=== PATIENT | female | born 1930 | race Caucasian/White ===

== ENCOUNTER → 2017-09-09 | Outpatient (CLI) | payer OTHER ==
[2016-06-07 21:04] VITALS: BP 151/75
--- NOTE | 2017-09-09 15:07 | RAD ---
HISTORY: Chronic knee pain with no known trauma Study: Two views of the left knee Comparison: None Findings: Images demonstrate postoperative changes of left knee replacement. No evidence of acute displaced fra cture, dislocation, or hardware failure is identified. IMPRESSION: 1. Postoperative changes of left knee replacement. Reported By:
--- NOTE | 2017-09-09 15:08 | RAD ---
HISTORY: Knee pain Study: Three views of right knee Comparison: None Findings: Images demonstrate medial and patellofemoral compartment space narrowing. Subchondral sclerosis and c yst formation are seen within the tibial plateau. Minimal spurring of the tibial spines is noted. Ent hesophyte formation is seen along the medial and lateral femoral condyles and the medial and lateral tibial plateau. Spurring is also seen along the posterior margin of the patella. Vascular calcificati ons are seen within the overlying soft tissues. IMPRESSION: 1. Degenerative changes as noted above. Reported By:
== END ==
LOC: RAD 09:21
PROVIDERS: ATTEND Internal Medicine
DX: M25.561 Pain in right knee (principal); M25.562 Pain in left knee
CPT/HCPCS: 73564

== ENCOUNTER 2017-12-19 11:53 | Observation (INO) ==
[~2017-12-19 11:53] MED LIST: NS IRRIGATION 3000 ML ONE
[2017-12-19 13:25] LABS: BASOPHILS % (AUTO) 0.6 % (0.2-1.0); EOSINOPHILS # (AUTO) 0.1 x10^3/uL (0.0-0.2); EOSINOPHILS % (AUTO) 1.2 % (0.9-2.9); HEMATOCRIT 39.6 % (36.0-47.0); HEMOGLOBIN 13.3 g/dL (12.0-16.0); LYMPHOCYTES # (AUTO) 2.2 X10^3/uL (1.3-2.9); LYMPHOCYTES % (AUTO) 32.2 % (21.0-51.0); MEAN CORPUSCULAR HEMOGLOBIN 29.8 pg (27.0-34.0); MEAN CORPUSCULAR HGB CONC 33.7 g/dL (33.0-35.0); MEAN CORPUSCULAR VOLUME 88.5 fL (80.0-100.0); MONOCYTES # (AUTO) 0.9 x10^3/uL (0.3-0.8); MONOCYTES % (AUTO) 12.3 % (0.0-13.0); NEUTROPHILS # (AUTO) 3.7 x10^3/uL (2.2-4.8); NEUTROPHILS % (AUTO) 53.7 % (42.0-75.0); PLATELET COUNT 249 X10^3/uL (150.0-450.0); RED BLOOD COUNT 4.48 X10^6/uL (3.5-5.4); RED CELL DISTRIBUTION WIDTH 13.2 % (11.6-16.5); WHITE BLOOD COUNT 6.9 X10^3/uL (3.6-10.0)
[2017-12-19 13:29] LABS: ALANINE AMINOTRANSFERASE 49 Units/L (12-78); ALBUMIN 3.6 g/dL (3.4-5.0); ALKALINE PHOSPHATASE 38 Units/L (46-116); ASPARTATE AMINO TRANSFERASE 50 Units/L (15-37); BLOOD UREA NITROGEN 35 mg/dL (7-18); CALCIUM 9.3 mg/dL (8.5-10.1); CARBON DIOXIDE 27.1 mmol/L (21-32); CHLORIDE 104 mmol/L (98-107); COR NA(FOR HYPERGLY) 140 mmol/L (136-145); CREATININE 1.77 mg/dL (0.55-1.02); SODIUM 139 mmol/L (136-145); TOTAL PROTEIN 7.2 g/dL (6.4-8.2); eGFR NON BLACK RACES 29 (>60)
[2017-12-19] MEDS: NS 1000 ML 1,000 ML IV SCH (13:30)
--- NOTE | 2017-12-19 14:35 | RAD ---
HISTORY: Preoperative evaluation for gallbladder surgery Study: Single view chest Comparison: 05/06/2012 Findings: Single portable view is submitted. Lung volumes are reduced. No infiltrate, effusion or pneumothorax identified. The cardiac and mediastinal contours are within normal limits. There are degenerative ch anges of the bony thorax. IMPRESSION: 1. No acute cardiopulmonary abnormality. Reported By:
[2017-12-19 14:55] VITALS: BMI 41.8
[2017-12-19 17:35] LABS: BILIRUBIN,URINE NEGATIVE (NEGATIVE); BLOOD/HEMOGLOBIN,URINE 1+ (NEGATIVE); GLUCOSE, URINE NEGATIVE (NEGATIVE); KETONES,URINE NEGATIVE (NEGATIVE); LEUKOCYTE ESTERASE ,URINE 2+ (NEGATIVE); NITRITES,URINE NEGATIVE (NEGATIVE); PROTEIN,URINE NEGATIVE (NEGATIVE); UROBILINOGEN,URINE NORMAL (NORMAL)
[2017-12-19 17:40] LABS: APPEARANCE,URINE SLIGHTLY HAZY (CLEAR); BACTERIA,URINE 1+ /HPF (NEGATIVE); COLOR,URINE YELLOW (YELLOW); SQUAMOUS EPITHELIAL CELL,UR RARE /HPF (NEGATIVE)
[2017-12-19] MEDS: ROCEPHIN VIAL 1 GRAM 1 G in NS 100 ML IV + SPIKE MINIBAG* 100 ML IV SCH (21:38)
[2017-12-19] MEDS: ZOCOR TAB 40 MG PO SCH (21:41)
[2017-12-19] MEDS: DESYREL PO SCH (21:41)
[2017-12-19] MEDS: LOPRESSOR TAB 25 MG PO SCH (21:41)
[2017-12-20] MEDS: NS 1000 ML 1,000 ML IV SCH ×4 (02:00→20:28)
[2017-12-20 05:20] LABS: BASOPHILS % (AUTO) 0.5 % (0.2-1.0); EOSINOPHILS # (AUTO) 0.1 x10^3/uL (0.0-0.2); EOSINOPHILS % (AUTO) 1.5 % (0.9-2.9); HEMATOCRIT 39.9 % (36.0-47.0); HEMOGLOBIN 13.4 g/dL (12.0-16.0); LYMPHOCYTES # (AUTO) 2.1 X10^3/uL (1.3-2.9); LYMPHOCYTES % (AUTO) 25.2 % (21.0-51.0); MEAN CORPUSCULAR HEMOGLOBIN 29.9 pg (27.0-34.0); MEAN CORPUSCULAR HGB CONC 33.6 g/dL (33.0-35.0); MEAN CORPUSCULAR VOLUME 88.8 fL (80.0-100.0); MEAN PLATELET VOLUME 9.4 fL (7.4-11.0); MONOCYTES # (AUTO) 0.9 x10^3/uL (0.3-0.8); MONOCYTES % (AUTO) 10.9 % (0.0-13.0); NEUTROPHILS # (AUTO) 5.2 x10^3/uL (2.2-4.8); NEUTROPHILS % (AUTO) 61.9 % (42.0-75.0); PLATELET COUNT 221 X10^3/uL (150.0-450.0); RED CELL DISTRIBUTION WIDTH 13.3 % (11.6-16.5); WHITE BLOOD COUNT 8.4 X10^3/uL (3.6-10.0)
[2017-12-20 05:25] LABS: ALANINE AMINOTRANSFERASE 44 Units/L (12-78); ALBUMIN 3.4 g/dL (3.4-5.0); ALKALINE PHOSPHATASE 35 Units/L (46-116); ASPARTATE AMINO TRANSFERASE 43 Units/L (15-37); BLOOD UREA NITROGEN 30 mg/dL (7-18); CALCIUM 9.1 mg/dL (8.5-10.1); CARBON DIOXIDE 28.5 mmol/L (21-32); CHLORIDE 105 mmol/L (98-107); COR NA(FOR HYPERGLY) 141 mmol/L (136-145); CREATININE 1.65 mg/dL (0.55-1.02); SODIUM 141 mmol/L (136-145); eGFR NON BLACK RACES 31 (>60)
[2017-12-20] MEDS: ZESTORETIC 10/ 12.5MG PO SCH (08:30)
[2017-12-20] MEDS: LOPRESSOR TAB 25 MG PO SCH ×2 (08:30→20:28)
[2017-12-20] MEDS: SYNTHROID 125 mcg TAB PO SCH (08:32)
[2017-12-20] MEDS ORDERED: LEVOTHYROXINE 125 MCG PO SCH (09:00)
[2017-12-20] MEDS: SINGULAIR TAB 10 MG PO SCH (10:22)
[2017-12-20] MEDS: PATIENT'S HOME MEDICATION (Fenofibrate [Fenofibrate] 54 MG) PO SCH (10:22)
[2017-12-20] MEDS: PriLOSEC PO SCH (10:22)
[2017-12-20] MEDS: ZyrTEC TAB 10 MG PO SCH (10:23)
[2017-12-20] MEDS: ROCEPHIN VIAL 1 GRAM 1 G in NS 100 ML IV + SPIKE MINIBAG* 100 ML IV SCH (10:35)
[2017-12-20] MEDS ORDERED: ZOFRAN INJ 4 MG VIAL IVP PRN (11:35)
--- NOTE | 2017-12-20 11:36 | PCM.PROG ---
Progress Note - Progress Note for Day of Date of Exam: 12/20/17 - Subjective Subjective: WAS ADMITTED FOR COMPLAINTS OF ABDOMINAL PAIN, NAUSEA/ VOMITING, AND DEHYDRATION. SHE HAD AN OUTPATIENT HIDA SCAN ON 11/16/17 WHICH REVEALED A LOW GALLBLADDEREJECTION FRACTION, SUGGESTING CHRONIC CHOLECYSTITIS OR BILIARY DYSKINESIA. SHE ALSO REPORTS BURINING ON URINATION. SHE STATES THAT NAUSEA IS WORSE AFTER EATING ANYTHING. TODAY, SHE IS ALERT AND ORIENTED, SITTING IN THE CHAIR ON MORNING ROUNDS. SHE CONTINUES WITH COMPLAINTS OF DIFFUSE ABDOMINAL PAIN AND NAUSEA. ON EXAMINATION, HEART IS REGULAR IN RATE AND RHYTHM. BILATERAL LUNGS ARE NOTED WITH DIMINISHED LUNG SOUNDS THROUGHOUT. ABDOMEN IS ROUND, SOFT, AND NOTED WITH MODERATE, DIFFUSE TENDERNESS. NORMAL BOWEL SOUNDS ARE NOTED IN ALL QUADRANTS. HER VITALS THIS MORNING ARE 98.1-62-20- 94%-182/94. LABS WERE OBTAINED. ABNORMAL LAB VALUES INCLUDE THE FOLLOWING: BUN 30, CREATININE 1.65, GLUCOSE 115, AST 43, ALK PHOS 35. ON ADMISSION, A URINALYSIS REVEALED WBC 3-5, RBC 3-5, LEUKOCYTES 2+, BACTERIA 1+. SHE WAS STARTED ON ROCEPHIN 1GM IV DAILY AND NORMAL SALINE AT 80ML/HR. HOME MEDICATIONS WERE RESUMED. CONSULTED WITH PATIENT AND ORDERED AN ABDOMEN/PELVIS CT WITH CONTRAST FOR THIS MORNING. OTHERWISE, WE WILL CONTINUE WITH CURRENT PLAN OF CARE AND CONTINUE TO MONITOR PATIENT. - Past Medical Family Social History Past Med/Fam/Surg Hx: No changes since H&P Allergies: Allergies latex Allergy (Verified 12/19/17 13:40) - Review of Systems ROS: No change since H&P - Vital Signs and I&O's Vital Signs: Temperature 98.1 F Pulse Rate [Right Brachial] 62 Respiratory Rate 20 Blood Pressure [Left Arm] 182/94 Blood Pressure [Right Arm] 148/74 Blood Pressure 151/75 O2 Sat by Pulse Oximetry 94 Intake and Output: Intake & Output 12/17/17 12/18/17 12/19/17 12/20/17 11:59 11:59 11:59 11:59 Intake Total 880 / 880 Output Total 1200 / 1200 Balance -320 / -320 - Physical Exam Oriented: Normal Eyes: Normal Ear: Normal Nose: Normal Throat: Normal Respiratory: Normal, Diminished Cardiovascular: Normal : Normal Auscultation: Bowel Sounds: Normal Palpation: Normal Tenderness: Diffuse, Moderate. negative: Rebound, Guarding, Rigidity Skin: Normal Musculoskeletal: Normal Psychiatric: Normal Mood Description: Calm Affect: Normal Speech Pattern: Clear, Appropriate - Laboratory and Diagnostics Result Diagrams: 12/20/17 04:20 12/20/17 04:20 Labs: 12/19/17 17:18 Urine,Clean Catch Urine Culture - Preliminary Laboratory WBC 8.4 X10^3/uL (3.6-10.0) 12/20/17 04:20 RBC 4.50 X10^6/uL (3.5-5.4) 12/20/17 04:20 Hgb 13.4 g/dL (12.0-16.0) 12/20/17 04:20 Hct 39.9 % (36.0-47.0) 12/20/17 04:20 MCV 88.8 fL (80.0-100.0) 12/20/17 04:20 MCH 29.9 pg (27.0-34.0) 12/20/17 04:20 MCHC 33.6 g/dL (33.0-35.0) 12/20/17 04:20 RDW 13.3 % (11.6-16.5) 12/20/17 04:20 Plt Count 221 X10^3/uL (150.0-450.0) 12/20/17 04:20 MPV 9.4 fL (7.4-11.0) 12/20/17 04:20 Neut % (Auto) 61.9 % (42.0-75.0) 12/20/17 04:20 Lymph % (Auto) 25.2 % (21.0-51.0) 12/20/17 04:20 [place] % (Auto) 10.9 % (0.0-13.0) 12/20/17 04:20 Eos % (Auto) 1.5 % (0.9-2.9) 12/20/17 04:20 Baso % (Auto) 0.5 % (0.2-1.0) 12/20/17 04:20 Neut # (Auto) 5.2 x10^3/uL (2.2-4.8) H 12/20/17 04:20 Lymph # (Auto) 2.1 X10^3/uL (1.3-2.9) 12/20/17 04:20 [place] # (Auto) 0.9 x10^3/uL (0.3-0.8) H 12/20/17 04:20 Eos # (Auto) 0.1 x10^3/uL (0.0-0.2) 12/20/17 04:20 Baso # (Auto) 0.0 X10^3/uL (0.0-0.1) 12/20/17 04:20 Absolute Nucleated RBC 0.0 /100WBC 12/20/17 04:20 Sodium 141 mmol/L (136-145) 12/20/17 04:20 Corrected Sodium 141 mmol/L (136-145) 12/20/17 04:20 Potassium 4.2 mmol/L (3.5-5.1) 12/20/17 04:20 Chloride 105 mmol/L (98-107) 12/20/17 04:20 Carbon Dioxide 28.5 mmol/L (21-32) 12/20/17 04:20 BUN 30 mg/dL (7-18) H 12/20/17 04:20 Creatinine 1.65 mg/dL (0.55-1.02) H 12/20/17 04:20 Est GFR (MDRD) Af Amer 38 (>60) L 12/20/17 04:20 Est GFR (MDRD) Non-Af 31 (>60) L 12/20/17 04:20 Glucose 115 mg/dL (65-99) H 12/20/17 04:20 Calcium 9.1 mg/dL (8.5-10.1) 12/20/17 04:20 Corrected Calcium TNP 12/20/17 04:20 Total Bilirubin 0.30 mg/dL (0.2-1.0) 12/20/17 04:20 AST 43 Units/L (15-37) H 12/20/17 04:20 ALT 44 Units/L (12-78) 12/20/17 04:20 Alkaline Phosphatase 35 Units/L (46-116) L 12/20/17 04:20 Total Protein 7.0 g/dL (6.4-8.2) 12/20/17 04:20 Albumin 3.4 g/dL (3.4-5.0) 12/20/17 04:20 Globulin 3.6 g/dL (2.5-4.5) 12/20/17 04:20 Albumin/Globulin Ratio 0.9 Ratio (1.1-2.1) L 12/20/17 04:20 Specimen Type Clean catch urine 12/19/17 17:18 Urine Color Yellow (YELLOW) 12/19/17 17:18 Urine Appearance Slightly hazy (CLEAR) 12/19/17 17:18 Urine pH 7.0 (5.0 - 8.0) 12/19/17 17:18 Ur Specific [place] 1.010 (1.000-1.030) 12/19/17 17:18 Urine Protein Negative (NEGATIVE) 12/19/17 17:18 Urine Glucose (UA) Negative (NEGATIVE) 12/19/17 17:18 Urine Ketones Negative (NEGATIVE) 12/19/17 17:18 Urine Occult Blood 1+ (NEGATIVE) 12/19/17 17:18 Urine Nitrite Negative (NEGATIVE) 12/19/17 17:18 Urine Bilirubin Negative (NEGATIVE) 12/19/17 17:18 Urine Urobilinogen Normal (NORMAL) 12/19/17 17:18 Ur Leukocyte Esterase 2+ (NEGATIVE) 12/19/17 17:18 Urine RBC 3-5 /HPF (NONE SEEN) 12/19/17 17:18 Urine WBC 3-5 /HPF (NONE SEEN) 12/19/17 17:18 Ur Squamous Epith Cells Rare /HPF (NEGATIVE) 12/19/17 17:18 Urine Bacteria 1+ /HPF (NEGATIVE) 12/19/17 17:18 Ur Culture Indicated? Yes/culture set up 12/19/17 17:18 - Plan (1) Abdominal pain Status: Acute Qualifiers: Abdominal location: generalized Qualified Code(s): R10.84 - Generalized abdominal pain Plan: ABDOMEN/PELVIS CT TODAY, CONTINUE TO MONITOR (2) Nausea & vomiting Status: Acute Qualifiers: Vomiting type: unspecified Vomiting Intractability: non-intractable Qualified Code(s): R11.2 - Nausea with vomiting, unspecified Plan: ZOFRAN 4MG IV Q6H PRN NAUSEA, CONTINUE TO MONITOR (3) Urinary tract infection Status: Acute Qualifiers: Urinary tract infection type: acute cystitis Hematuria presence: without hematuria Qualified Code(s): N30.00 - Acute cystitis without hematuria Plan: ROCEPHIN 1GM IV DAILY, CONTINUE TO MONITOR
--- NOTE | 2017-12-20 12:16 | CT ---
HISTORY: Right upper quadrant pain, nausea, gallstones, low gallbladder ejection fraction. Study: CT abdomen and pelvis without IV and with oral contrast Comparison: 02/06/2016 Technique: Multiple axial images of the abdomen and pelvis were obtained from the lung bases to the pubic symphy sis without the administration of IV contrast. Oral contrast agents were given. Coronal and sagittal images are also reviewed. Dose reduction techniques utilized automatic exposure control. Findings: The visualized portions of the lung bases are unremarkable. Multiple simple cysts are present involvi ng right and left hepatic lobes and both kidneys, essentially unchanged from prior studies. Findings have the appearance of polycystic kidney and liver disease. The spleen, pancreas, and adrenal glands are unremarkable in their CT appearance. The gallbladder is unremarkable in its CT appearance. No s ignificant mesenteric lymphadenopathy or stranding can be observed. No free fluid or free air is see n within the abdomen. No bowel wall thickening or bowel dilatation is present. There is generalized diverticulosis of the colon, severe in the sigmoid. No evidence of diverticulitis or obstruction is seen.. The urinary bladder is grossly unremarkable. There are bilateral hip arthroplasties. Artifact s off of the structures rendering good definition of pelvic structures difficult. The uterus and ovar ies regions are not well seen. Severe multilevel degenerative disc disease is present with marginal s pondylosis in the lumbar spine. IMPRESSION: Polycystic kidney and liver disease. No solid masses are seen. Normal appearing gallbladder by CT criteria. Generalized diverticulosis of the colon, severe in the sigmoid. No evidence of diverticulitis or obst ruction is seen. Reported By:
[2017-12-20] MEDS ORDERED: TYLENOL 325 MG TAB PO PRN (13:25)
[2017-12-20] MEDS: DESYREL PO SCH (20:28)
[2017-12-20] MEDS: ZOCOR TAB 40 MG PO SCH (20:28)
[2017-12-21 05:26] LABS: BASOPHILS % (AUTO) 0.8 % (0.2-1.0); EOSINOPHILS # (AUTO) 0.2 x10^3/uL (0.0-0.2); EOSINOPHILS % (AUTO) 3.2 % (0.9-2.9); HEMATOCRIT 37.9 % (36.0-47.0); HEMOGLOBIN 12.4 g/dL (12.0-16.0); LYMPHOCYTES # (AUTO) 1.9 X10^3/uL (1.3-2.9); LYMPHOCYTES % (AUTO) 33.3 % (21.0-51.0); MEAN CORPUSCULAR HEMOGLOBIN 28.9 pg (27.0-34.0); MEAN CORPUSCULAR HGB CONC 32.8 g/dL (33.0-35.0); MEAN PLATELET VOLUME 9.1 fL (7.4-11.0); MONOCYTES # (AUTO) 0.7 x10^3/uL (0.3-0.8); MONOCYTES % (AUTO) 11.6 % (0.0-13.0); NEUTROPHILS % (AUTO) 51.1 % (42.0-75.0); PLATELET COUNT 238 X10^3/uL (150.0-450.0); RED CELL DISTRIBUTION WIDTH 13.3 % (11.6-16.5); WHITE BLOOD COUNT 5.8 X10^3/uL (3.6-10.0)
[2017-12-21] MEDS: NS 1000 ML 1,000 ML IV SCH (05:34)
[2017-12-21 05:37] LABS: ALANINE AMINOTRANSFERASE 35 Units/L (12-78); ALBUMIN 3.3 g/dL (3.4-5.0); ALKALINE PHOSPHATASE 37 Units/L (46-116); ASPARTATE AMINO TRANSFERASE 34 Units/L (15-37); BLOOD UREA NITROGEN 22 mg/dL (7-18); CALCIUM 8.9 mg/dL (8.5-10.1); CARBON DIOXIDE 26.9 mmol/L (21-32); CHLORIDE 107 mmol/L (98-107); COR CA(FOR HYPOALB) 9.5 mg/dL (8.5-10.1); CREATININE 1.37 mg/dL (0.55-1.02); SODIUM 142 mmol/L (136-145); TOTAL PROTEIN 6.7 g/dL (6.4-8.2); eGFR NON BLACK RACES 39 (>60)
[2017-12-21] MEDS: LOPRESSOR TAB 25 MG PO SCH ×2 (08:04→20:55)
[2017-12-21] MEDS: ROCEPHIN VIAL 1 GRAM 1 G in NS 100 ML IV + SPIKE MINIBAG* 100 ML IV SCH (08:04)
[2017-12-21] MEDS ORDERED: FENTANYL INJ 250 mcg ONE (12:07)
[2017-12-21] MEDS ORDERED: AMIDATE INJ 40 MG VIAL ONE (12:07)
[2017-12-21] MEDS ORDERED: LR 1000 ML IV 1,000 ML IV ONE (12:09)
[2017-12-21] MEDS ORDERED: ANCEF 1 GRAM IV PREMIX* 1 G/50 ML BAG IV ONE (12:10)
[2017-12-21] MEDS ORDERED: BENADRYL INJ 50 MG VIAL IVP PRN (13:51)
[2017-12-21] MEDS ORDERED: ZOFRAN INJ 4 MG VIAL IVP PRN (13:51)
[2017-12-21] MEDS ORDERED: DILAUDID INJ IVP PRN ×2 (13:51→14:25)
[2017-12-21] MEDS ORDERED: REGLAN INJ 10 MG VIAL IVP PRN (13:51)
[2017-12-21] MEDS ORDERED: PHENERGAN INJ 25 MG IVP PRN (13:51)
[2017-12-21] MEDS ORDERED: DILAUDID INJ ONE (13:58)
[2017-12-21] MEDS: PATIENT'S HOME MEDICATION (Fenofibrate [Fenofibrate] 54 MG) PO SCH (14:38)
[2017-12-21] MEDS: SYNTHROID 125 mcg TAB PO SCH (14:38)
[2017-12-21] MEDS: SINGULAIR TAB 10 MG PO SCH (14:38)
[2017-12-21] MEDS: PriLOSEC PO SCH (14:38)
[2017-12-21] MEDS: ZyrTEC TAB 10 MG PO SCH (14:40)
[2017-12-21] MEDS ORDERED: LTA KIT LIDOCAINE 4% ONE (15:21)
[2017-12-21] MEDS ORDERED: SUPRANE IN ONE (15:21)
[2017-12-21] MEDS ORDERED: ROBINUL ONE (15:21)
[2017-12-21] MEDS ORDERED: QUELICIN (OR ANECTINE) ONE (15:21)
[2017-12-21] MEDS ORDERED: VERSED ONE (15:21)
[2017-12-21] MEDS ORDERED: NORMODYNE INJ 100 MG VIAL ONE (15:21)
[2017-12-21] MEDS ORDERED: APRESOLINE INJ 20 MG VIAL ONE (15:21)
[2017-12-21] MEDS ORDERED: NEOSTIGMINE INJ ONE (15:21)
[2017-12-21] MEDS ORDERED: XYLOCAINE 1 % (PLAIN) ONE (15:21)
[2017-12-21] MEDS ORDERED: ZOFRAN INJ 4 MG VIAL ONE (15:21)
[2017-12-21] MEDS ORDERED: NORCURON INJ 10 MG VIAL ONE (15:21)
[2017-12-21] MEDS: D5 1/2 NS 1000 ML 1,000 ML IV SCH (15:46)
[2017-12-21] MEDS: ZESTORETIC 10/ 12.5MG PO SCH (16:53)
--- NOTE | 2017-12-21 18:09 | OR.GENERIC ---
Post-Op Note Generic - Post-Op Note Operative Report: Lap deven and liver Bx was done . findings : large distended GB and small liver nodule Rt lobe of liver . did well with minimal blood loss . start low fat diet in am and will follow in 10 days .
[2017-12-21] MEDS: DESYREL PO SCH (20:55)
[2017-12-21] MEDS: ZOCOR TAB 40 MG PO SCH (20:55)
[2017-12-21] MEDS: NYSTATIN POWDER TOP SCH (20:55)
[2017-12-22] MEDS: D5 1/2 NS 1000 ML 1,000 ML IV SCH (04:46)
[2017-12-22 05:25] LABS: BASOPHILS % (AUTO) 0.5 % (0.2-1.0); EOSINOPHILS % (AUTO) 0.6 % (0.9-2.9); HEMATOCRIT 35.2 % (36.0-47.0); HEMOGLOBIN 11.8 g/dL (12.0-16.0); LYMPHOCYTES # (AUTO) 1.3 X10^3/uL (1.3-2.9); LYMPHOCYTES % (AUTO) 17.2 % (21.0-51.0); MEAN CORPUSCULAR HEMOGLOBIN 29.6 pg (27.0-34.0); MEAN CORPUSCULAR HGB CONC 33.5 g/dL (33.0-35.0); MEAN CORPUSCULAR VOLUME 88.3 fL (80.0-100.0); MEAN PLATELET VOLUME 9.4 fL (7.4-11.0); MONOCYTES # (AUTO) 0.6 x10^3/uL (0.3-0.8); MONOCYTES % (AUTO) 8.1 % (0.0-13.0); NEUTROPHILS # (AUTO) 5.5 x10^3/uL (2.2-4.8); NEUTROPHILS % (AUTO) 73.6 % (42.0-75.0); PLATELET COUNT 202 X10^3/uL (150.0-450.0); RED BLOOD COUNT 3.98 X10^6/uL (3.5-5.4); RED CELL DISTRIBUTION WIDTH 13.4 % (11.6-16.5); WHITE BLOOD COUNT 7.5 X10^3/uL (3.6-10.0)
[2017-12-22 05:42] LABS: CALCIUM 8.7 mg/dL (8.5-10.1); CARBON DIOXIDE 27.4 mmol/L (21-32); COR CA(FOR HYPOALB) 9.5 mg/dL (8.5-10.1); CREATININE 1.39 mg/dL (0.55-1.02); TOTAL PROTEIN 6.1 g/dL (6.4-8.2)
[2017-12-22] MEDS: SYNTHROID 125 mcg TAB PO SCH (06:01)
[2017-12-22 08:01] VITALS: BP 119/59
[2017-12-22] MEDS: ZESTORETIC 10/ 12.5MG PO SCH (08:40)
[2017-12-22] MEDS: ZyrTEC TAB 10 MG PO SCH (08:40)
[2017-12-22] MEDS: SINGULAIR TAB 10 MG PO SCH (08:40)
[2017-12-22] MEDS: LOPRESSOR TAB 25 MG PO SCH (08:40)
[2017-12-22] MEDS: NYSTATIN POWDER TOP SCH (08:41)
[2017-12-22] MEDS: ROCEPHIN VIAL 1 GRAM 1 G in NS 100 ML IV + SPIKE MINIBAG* 100 ML IV SCH (08:41)
[2017-12-22] MEDS: PriLOSEC PO SCH (08:41)
[2017-12-22] MEDS: PATIENT'S HOME MEDICATION (Fenofibrate [Fenofibrate] 54 MG) PO SCH (08:41)
--- NOTE | 2018-02-11 22:25 | DR.CARTERD ---
- Discharge Summary for: Discharge Summary for Date of:: 12/22/17 - Admission Date Date of Admission: 12/19/17 - Admission Diagnoses Admission Diagnosis: (1) Abdominal pain (2) Nausea & vomiting (3) Urinary tract infection - Discharge Date Discharge Date: 12/22/17 - Discharge Diagnoses Discharge Diagnosis: (1) Abdominal pain (2) Dysfunctional Gallbladder (2) Nausea & vomiting (3) E.Coli UTI - Hospital Course Hospital Course: Patient presented to the hospital as a direct admission after being seen in the office with reports of abdominal pain. Patient noted with history of severe nausea and what was described by the patient as indigestion. She had these symptoms for a long time. The patient was evaluated on an outpatient basis and was found to have dysfunctional gallbladder on recent biliary scan. The patient denied any significant pain although she was having some epigastric and upper abdominal discomfort. In addition to that, the patient was complaining of persistent nausea, aggravated with meals. No actual vomiting. She had occasional dysphagia to solid food. The patient had irregular bowel habits lately with loose bowel and what was described by the patient as yellowish loose bowel movements with burning sensation. She had a limited colonoscopy in the past because she could not take her bowel prep. Medical History: Cataracts, [place], Hypertension, Arthritis. Medications: NS @80ml/hr, Rocephin 1gm IV daily, Lopresor 25mg po BID, Zocor 40mg po HS, Desyrel 50mg po HS. Abnormal Labs: BUN 35, Creatinine 1.77, GFR af 35, GFR non 29, Glucose 131, AST 50, Alk Phos 38, A/G Ratio 1.0. Urinalysis: Slightly hazy, Occult Blood 1+, Leuk Est 2+, RBC 3-5, WBC 3-5, Bacteria 1+. Chest X-Ray: No acute cardiopulmonary abnormality. We admitted patient and monitored. On day two, we obtained a CT of abd/plevis and it reported polycystic kidney and liver disease, no solid masses seen; normal appearing gallbladder by CT criteria; generalized diverticulosis of the colon, severe in the sigmoid. We consulted Dr. Franklin, General Surgeon. On day three, Dr. Franklin took patient to OR for a lap deven. Patient tolerated procedure well. Dr. Franklin noted: Lap deven and liver Bx was done; findings : large distended GB and small liver nodule Rt lobe of liver; did well with minimal blood loss. We continued treatment and monitored. On day four, patient reported she felt better. Patient was tolerating pain with oral pain medication. Dressings to abdomen were dry and intact. Patient was tolerating soft food well without nausea. Dr. Franklin released patient for discharge. Vital signs stable. Labs wnl. We planned for discharge. Instructions for medications and follow up were discussed with patient and family, both voiced understanding. Patient discharged home in stable condition with family. Labs: Microbiology 12/19/17 17:18 Urine,Clean Catch Urine Culture - Final Escherichia Coli - Discharge Medications Discharge Medications: Home Medication List cetirizine 10 mg PO QDAY 12/19/17 [History] fenofibrate 54 mg PO QDAY 12/19/17 [History] levothyroxine 125 mcg PO QDAY 12/19/17 [History] lisinopril-hydrochlorothiazide 1 tab PO QDAY 12/19/17 [History] meloxicam 15 mg PO QDAY 12/19/17 [History] metoprolol tartrate 25 mg PO BID 12/19/17 [History] montelukast [Singulair] 10 mg PO QDAY 12/19/17 [History] omeprazole magnesium [Prilosec OTC] 20 mg PO QDAY 12/19/17 [History] simvastatin 40 mg PO QHS 12/19/17 [History] trazodone 50 mg PO QHS 12/19/17 [History] aspirin [Aspir-81] 81 mg PO QDAY 12/20/17 [History] docusate sodium [Colace] 100 mg PO QDAY 12/20/17 [History] hydrocodone-acetaminophen [[place]] 1 tab PO Q4H PRN #20 tab 12/22/17 [Rx] Prescriptions: hydrocodone-acetaminophen [[place]] NORMA FRANKLIN - Discharge Disposition Discharge Disposition: Patient is to follow up in our office in one wee and with Dr. Franklin in 10 days.
--- NOTE | 2018-03-26 20:13 | DR.UPDATE ---
H&P Update History and Physical Update: WAS SEEN IN THE OFFICE TODAY. A H&P WAS COMPLETED PRIOR TO ADMISSION. PATIENT HAS BEEN SEEN AND EXAMINED WITH NO CHANGES NOTED TO H&P. Changes noted: NO Yes with the following:
== END 2017-12-22 12:00 | disposition home or self-care (01) ==
LOC: MED/SURG
PROVIDERS: ADMIT Internal Medicine; ATTEND Internal Medicine
DX: B96.29 Other Escherichia coli [E. coli] as the cause of diseases classified elsewhere; N30.00 Acute cystitis without hematuria; E78.2 Mixed hyperlipidemia; E86.0 Dehydration; K90.49 Malabsorption due to intolerance, not elsewhere classified; E03.8 Other specified hypothyroidism; K82.8 Other specified diseases of gallbladder; Q44.6 Cystic disease of liver; R11.2 Nausea with vomiting, unspecified; Q61.2 Polycystic kidney, adult type; R94.4 Abnormal results of kidney function studies; R26.89 Other abnormalities of gait and mobility; R13.11 Dysphagia, oral phase; R10.84 Generalized abdominal pain
CPT/HCPCS: 36415; 71010; 71045; 74176; 80053; 81001; 85025; 87086; 87088; 87186; 88304; 88307; 88313; 93005; 93306; 97167; 97530; 99100; A4216; A4222; G0378; J0330; J0360; J0690; J0696; J1170; J2250; J2405; J2710; J3010; J3490; J7030; J7050; J7120; S5010